=== PATIENT | male | born 1955 | race Caucasian/White ===

== ENCOUNTER 2017-08-08 11:52 | Inpatient (IN) | payer MEDICAID, OTHER ==
[~2017-08-08] VITALS: Ht 175.3 cm; Wt 70.2 kg
[2017-08-08] MEDS ORDERED: SODIUM CHLORIDE 0.9% 1,000 ML IV ONE (12:06)
[2017-08-08] MEDS ORDERED: ASPirin 81 mg TAB PO ONE (12:15)
[2017-08-08] MEDS ORDERED: NITROGLYCERIN 0.4 MG SL TAB SL ONE (12:15)
[2017-08-08 12:28] LABS: Basophils # (auto) 0.1 uL; Eosinophils # (auto) 0.2 uL; Lymphocytes # (auto) 1.1 uL; Mean Corpuscular Hemoglobin 25.2 pg (28.0-32.0); Mean Corpuscular Hgb Conc. 31.9 g/dL (32.0-36.0); Monocytes # (auto) 0.6 uL
[2017-08-08 12:30] LABS: Basophils % (auto) 0.9 % (0.0-2.0); Eosinophils % (auto) 2.5 % (0.0-7.0); Hematocrit 38.2 % (41.0-53.0); Hemoglobin 12.2 g/dL (13.5-17.5); Mean Corpuscular Volume 79.2 fL (80.0-100.0); Monocytes % (auto) 9.9 % (0.0-12.0); Neutrophils # (auto) 4.3 uL; Neutrophils % (auto) 68.7 % (37.0-80.0); Platelet Count (auto) 264 10^3/uL (140-450); Red Blood Cells 4.83 10^6/uL (4.5-5.90); Red Cell Distribution Width 15.3 % (11.8-14.3); White Blood Cell 6.2 10^3/uL (4.4-10.8)
[2017-08-08 12:43] LABS: Albumin 3.7 g/dL (3.4-5.0); BUN/Creatinine Ratio 17.2; Bilirubin, Total 0.6 mg/dL (0.2-1.0); Calcium 8.8 mg/dL (8.5-10.1); Potassium 3.9 mmol/L (3.5-5.1); Total Protein 7.4 g/dL (6.4-8.2)
[2017-08-08 12:48] LABS: Urine Bacteria NONE SEEN /hpf (None Seen); Urine Blood Negative /uL (Negative); Urine Specific Gravity 1.009 (1.001-1.035); Urine WBC 1 /hpf (0 - 3)
[2017-08-08 13:19] LABS: INR 0.93 (0.9-1.15); Partial Thromboplastin Time 26.6 sec (23.78-33.04)
[2017-08-08] MEDS ORDERED: ALUM & MAG HYDROX-SIMETH LIQ(MAALOX) 30 ML PO ONE (14:30)
[2017-08-08] MEDS ORDERED: ONDANSETRON HCL 4 MG/2 ML VIAL IV PRN (14:30)
[2017-08-08] MEDS ORDERED: ACETAMINOPHEN 325 MG TAB PO PRN (14:30)
[2017-08-08] MEDS ORDERED: MORPHINE SULFATE 8mg/ml INJ SDV IV PRN ×2 (14:30)
[2017-08-08] MEDS ORDERED: LORazepam 0.5 MG TAB PO PRN (14:30)
[2017-08-08] MEDS ORDERED: ZOLPIDEM TARTRATE 5 MG TAB PO PRN (14:30)
[2017-08-08] MEDS ORDERED: FAMOTIDINE 20 MG TAB PO ONE (14:30)
[2017-08-08] MEDS ORDERED: POTASSIUM CHL 10% (20 MEQ/15ML) 15ml ORAL SOLN PO ONE (14:30)
[2017-08-08] MEDS ORDERED: NITROGLYCERIN 0.4 MG SL TAB SL PRN ×2 (14:30)
[2017-08-08 14:53] LABS: % Iron Saturation 10.9 % (20-55)
[2017-08-08] MEDS ORDERED: MORPHINE SULF INJ 2 MG/ML SYRINGE 1ML IV PRN (15:00)
[2017-08-08 16:25] VITALS: BP 163/92
[2017-08-08] MEDS ORDERED: GABA300C10 PO (16:34)
[2017-08-08] MEDS ORDERED: FURO40TA4 PO (16:34)
[2017-08-08] MEDS ORDERED: CARB25TA3 PO (16:34)
[2017-08-08] MEDS ORDERED: FAMO-12 PO (16:34)
[2017-08-08] MEDS ORDERED: POTA10TA34 PO (16:34)
[2017-08-08] MEDS: GABAPENTIN 300 MG CAP PO SCH ×2 (17:56→22:29)
[2017-08-08] MEDS: FUROSEMIDE 40 MG TAB PO SCH (17:56)
[2017-08-08 20:00] VITALS: BP 124/74
[2017-08-08 21:04] VITALS: BP 124/74
[2017-08-08] MEDS: SODIUM CHLOR 0.9% PF (SALINE LOCK) 10ML VIAL/SYR IV SCH (22:28)
[2017-08-08] MEDS: ATORVASTATIN 20 MG TAB PO SCH (22:29)
[2017-08-08] MEDS: CARVEDILOL 3.125 MG TAB PO SCH (22:29)
[2017-08-08] MEDS: CARBIDOPA W LEVODOPA 25/100mg TABLET PO SCH (22:30)
[2017-08-08] MEDS: ENALAPRIL MALEATE 2.5 MG TAB PO SCH (22:30)
[2017-08-09 04:59] VITALS: BP 101/63
[2017-08-09] MEDS: SODIUM CHLOR 0.9% PF (SALINE LOCK) 10ML VIAL/SYR IV SCH ×3 (06:25→22:45)
[2017-08-09] MEDS: FUROSEMIDE 40 MG TAB PO SCH ×2 (06:26→18:00)
[2017-08-09] MEDS: GABAPENTIN 300 MG CAP PO SCH ×4 (06:26→22:44)
[2017-08-09] MEDS: CARBIDOPA W LEVODOPA 25/100mg TABLET PO SCH ×3 (06:27→22:43)
[2017-08-09 07:05] LABS: Basophils # (auto) 0.1 uL; Eosinophils # (auto) 0.2 uL; Hemoglobin 12.1 g/dL (13.5-17.5); White Blood Cell 5.8 10^3/uL (4.4-10.8)
[2017-08-09 07:07] LABS: Basophils % (auto) 1.3 % (0.0-2.0); Eosinophils % (auto) 3.6 % (0.0-7.0); Lymphocytes # (auto) 1.3 uL; Lymphocytes % (auto) 22.4 % (10.0-50.0); Mean Corpuscular Hemoglobin 25.8 pg (28.0-32.0); Mean Corpuscular Hgb Conc. 32.6 g/dL (32.0-36.0); Mean Corpuscular Volume 79.2 fL (80.0-100.0); Monocytes # (auto) 0.7 uL; Monocytes % (auto) 12.8 % (0.0-12.0); Neutrophils # (auto) 3.5 uL; Neutrophils % (auto) 59.9 % (37.0-80.0); Platelet Count (auto) 261 10^3/uL (140-450); Red Blood Cells 4.67 10^6/uL (4.5-5.90); Red Cell Distribution Width 15.3 % (11.8-14.3)
[2017-08-09 07:12] LABS: Albumin 3.6 g/dL (3.4-5.0); Bilirubin, Total 0.6 mg/dL (0.2-1.0); Calcium 9.2 mg/dL (8.5-10.1); Magnesium 2.4 mg/dL (1.6-2.6); Potassium 4.1 mmol/L (3.5-5.1)
[2017-08-09 09:00] VITALS: BP 130/72
[2017-08-09] MEDS: DOCUSATE SOD 100 MG CAP PO SCH (10:00)
[2017-08-09] MEDS: CARVEDILOL 3.125 MG TAB PO SCH ×2 (11:15→22:00)
[2017-08-09] MEDS: ASPirin 81 mg TAB PO SCH (11:15)
[2017-08-09] MEDS: FAMOTIDINE 20 MG TAB PO SCH (11:16)
[2017-08-09] MEDS: POTASSIUM CHL 10% (20 MEQ/15ML) 15ml ORAL SOLN PO SCH (11:16)
[2017-08-09] MEDS: CLOPIDOGREL BISULFATE 75 MG TAB PO SCH (11:16)
[2017-08-09] MEDS: ENALAPRIL MALEATE 2.5 MG TAB PO SCH ×2 (11:16→22:00)
[2017-08-09 13:00] VITALS: BP 103/62
[2017-08-09 17:00] VITALS: BP 96/63
[2017-08-09] MEDS: ATORVASTATIN 20 MG TAB PO SCH (22:43)
[2017-08-10 05:28] VITALS: BP 125/71
[2017-08-10] MEDS: FUROSEMIDE 40 MG TAB PO SCH ×2 (06:00→17:43)
[2017-08-10] MEDS: CARBIDOPA W LEVODOPA 25/100mg TABLET PO SCH ×3 (06:16→22:57)
[2017-08-10] MEDS: GABAPENTIN 300 MG CAP PO SCH ×4 (06:16→22:57)
[2017-08-10] MEDS: SODIUM CHLOR 0.9% PF (SALINE LOCK) 10ML VIAL/SYR IV SCH ×3 (06:17→22:54)
[2017-08-10 09:24] VITALS: BP 106/63
[2017-08-10] MEDS: CARVEDILOL 3.125 MG TAB PO SCH ×2 (10:00→22:56)
[2017-08-10] MEDS: DOCUSATE SOD 100 MG CAP PO SCH (10:00)
[2017-08-10] MEDS: ASPirin 81 mg TAB PO SCH (12:12)
[2017-08-10] MEDS: CLOPIDOGREL BISULFATE 75 MG TAB PO SCH (12:13)
[2017-08-10] MEDS: ENALAPRIL MALEATE 2.5 MG TAB PO SCH ×2 (12:13→22:57)
[2017-08-10] MEDS: POTASSIUM CHL 10% (20 MEQ/15ML) 15ml ORAL SOLN PO SCH (12:13)
[2017-08-10] MEDS: FAMOTIDINE 20 MG TAB PO SCH (12:13)
[2017-08-10 13:00] VITALS: BP 120/76
[2017-08-10 16:59] VITALS: BP 100/57
[2017-08-10] MEDS: ATORVASTATIN 20 MG TAB PO SCH (22:56)
[2017-08-11] MEDS: CARBIDOPA W LEVODOPA 25/100mg TABLET PO SCH ×3 (05:54→21:59)
[2017-08-11] MEDS: GABAPENTIN 300 MG CAP PO SCH ×4 (05:54→22:00)
[2017-08-11] MEDS: SODIUM CHLOR 0.9% PF (SALINE LOCK) 10ML VIAL/SYR IV SCH ×3 (05:54→22:00)
[2017-08-11] MEDS: FUROSEMIDE 40 MG TAB PO SCH ×2 (05:55→18:33)
[2017-08-11 05:58] VITALS: BP 105/65
[2017-08-11 06:34] LABS: Basophils # (auto) 0.1 uL; Eosinophils # (auto) 0.4 uL; Hemoglobin 12.9 g/dL (13.5-17.5); Nucleated Red Blood Cells % 0.1 %; White Blood Cell 6.3 10^3/uL (4.4-10.8)
[2017-08-11 06:37] LABS: Basophils % (auto) 1.4 % (0.0-2.0); Eosinophils % (auto) 6.2 % (0.0-7.0); Lymphocytes # (auto) 1.2 uL; Lymphocytes % (auto) 19.2 % (10.0-50.0); Mean Corpuscular Hemoglobin 25.6 pg (28.0-32.0); Mean Corpuscular Hgb Conc. 32.3 g/dL (32.0-36.0); Mean Corpuscular Volume 79.2 fL (80.0-100.0); Monocytes # (auto) 0.8 uL; Monocytes % (auto) 12.5 % (0.0-12.0); Neutrophils # (auto) 3.8 uL; Neutrophils % (auto) 60.7 % (37.0-80.0); Platelet Count (auto) 254 10^3/uL (140-450); Red Blood Cells 5.05 10^6/uL (4.5-5.90); Red Cell Distribution Width 15.4 % (11.8-14.3)
[2017-08-11 07:10] LABS: Potassium 4.7 mmol/L (3.5-5.1)
[2017-08-11 07:22] LABS: Albumin 3.6 g/dL (3.4-5.0); BUN/Creatinine Ratio 18.5; Calcium 8.9 mg/dL (8.5-10.1)
[2017-08-11 07:24] LABS: Bilirubin, Total 0.6 mg/dL (0.2-1.0); Total Protein 7.2 g/dL (6.4-8.2)
[2017-08-11 09:00] VITALS: BP 119/74
[2017-08-11] MEDS ORDERED: LIDOCAINE 2%HCL (LOCAL ANESTH.) INJ 20ML MDV ONE (09:33)
[2017-08-11] MEDS ORDERED: IODIXANOL 320MG/ML 100ML BTL IV ONE (09:33)
[2017-08-11] MEDS ORDERED: SODIUM CHL 0.9% 50 ML ONE (09:40)
[2017-08-11] MEDS ORDERED: fentaNYL CITRATE 100 MCG/2 ML VL ONE (09:40)
[2017-08-11] MEDS ORDERED: MIDAZOLAM HCL 1MG/1ML-2 ML VIAL ONE (09:40)
[2017-08-11] MEDS ORDERED: ANGIOMAX 250 MG VIAL IV ONE (09:40)
[2017-08-11] MEDS: POTASSIUM CHL 10% (20 MEQ/15ML) 15ml ORAL SOLN PO SCH (10:00)
[2017-08-11] MEDS: CARVEDILOL 3.125 MG TAB PO SCH ×2 (10:00→21:59)
[2017-08-11] MEDS: ENALAPRIL MALEATE 2.5 MG TAB PO SCH ×2 (10:00→22:00)
[2017-08-11] MEDS: ASPirin 81 mg TAB PO SCH (10:00)
[2017-08-11] MEDS: CLOPIDOGREL BISULFATE 75 MG TAB PO SCH (10:00)
[2017-08-11 13:00] VITALS: BP 132/78
[2017-08-11] MEDS: DOCUSATE SOD 100 MG CAP PO SCH (13:53)
[2017-08-11] MEDS: FAMOTIDINE 20 MG TAB PO SCH (13:53)
[2017-08-11 17:00] VITALS: BP 116/68
[2017-08-11 22:00] VITALS: BP 113/71
[2017-08-11] MEDS: ATORVASTATIN 20 MG TAB PO SCH (22:00)
[2017-08-12 05:00] VITALS: BP 103/63
[2017-08-12] MEDS: GABAPENTIN 300 MG CAP PO SCH (05:50)
[2017-08-12] MEDS: SODIUM CHLOR 0.9% PF (SALINE LOCK) 10ML VIAL/SYR IV SCH (05:50)
[2017-08-12] MEDS: FUROSEMIDE 40 MG TAB PO SCH (05:50)
[2017-08-12] MEDS: CARBIDOPA W LEVODOPA 25/100mg TABLET PO SCH (05:50)
[2017-08-12 08:30] VITALS: BP 99/58
[2017-08-12] MEDS: ENALAPRIL MALEATE 2.5 MG TAB PO SCH (10:00)
[2017-08-12] MEDS: CARVEDILOL 3.125 MG TAB PO SCH (10:00)
[2017-08-12] MEDS: ASPirin 81 mg TAB PO SCH (10:15)
[2017-08-12] MEDS: DOCUSATE SOD 100 MG CAP PO SCH (10:15)
[2017-08-12] MEDS: POTASSIUM CHL 10% (20 MEQ/15ML) 15ml ORAL SOLN PO SCH (10:15)
[2017-08-12] MEDS: FAMOTIDINE 20 MG TAB PO SCH (10:15)
[2017-08-12] MEDS: CLOPIDOGREL BISULFATE 75 MG TAB PO SCH (10:15)
[2017-08-12 12:30] VITALS: BP 129/52
== END 2017-08-12 18:45 | disposition home or self-care (01) | DRG 175 ==
LOC: ER 11:54 → TELE 11:55 → TELE-CENTR 15:43
PROVIDERS: ADMIT Specialist; ATTEND Internal Medicine
PROC: 02704ZZ Dilation of Coronary Artery, One Artery, Percutaneous Endoscopic Approach (ICD-10-PCS; principal; 2017-08-11)
PROC: B41F1ZZ Fluoroscopy of Right Lower Extremity Arteries using Low Osmolar Contrast (ICD-10-PCS; 2017-08-11)
PROC: 4A023N7 Measurement of Cardiac Sampling and Pressure, Left Heart, Percutaneous Approach (ICD-10-PCS; 2017-08-11)
PROC: B2111ZZ Fluoroscopy of Multiple Coronary Arteries using Low Osmolar Contrast (ICD-10-PCS; 2017-08-11)
PROC: B2151ZZ Fluoroscopy of Left Heart using Low Osmolar Contrast (ICD-10-PCS; 2017-08-11)
DX: I11.0 Hypertensive heart disease with heart failure (principal); I21.4 Non-ST elevation (NSTEMI) myocardial infarction; G20 Parkinson's disease; I50.43 Acute on chronic combined systolic (congestive) and diastolic (congestive) heart failure; D50.9 Iron deficiency anemia, unspecified; I25.110 Atherosclerotic heart disease of native coronary artery with unstable angina pectoris; I25.2 Old myocardial infarction; D63.8 Anemia in other chronic diseases classified elsewhere; I25.5 Ischemic cardiomyopathy; Z95.5 Presence of coronary angioplasty implant and graft
CPT/HCPCS: 36415; 71045; 75710; 80053; 80061; 81001; 83540; 83550; 83735; 83880; 84484; 85025; 85610; 85730; 92920; 93005; 93306; 93458; 96360; 99152; J2250; Q9967